=== PATIENT | male | born 1985 | race Caucasian/White ===

== ENCOUNTER 2022-01-29 19:39 | Emergency (ER) | payer SELFPAY ==
[2022-01-29] MEDS ORDERED: Metoclopramide 10 MG/2 ML SDV IVPUSH ONE (20:03)
[2022-01-29] MEDS ORDERED: Sodium Chloride 0.9% 1,000 ML IV ONE ×2 (20:03→21:52)
[2022-01-29] MEDS ORDERED: Ketorolac 30 MG/ML SDV IVPUSH ONE (20:03)
[2022-01-29] MEDS ORDERED: diphenhydrAMINE 50 MG/ML SDV IVPUSH ONE (20:03)
[2022-01-29 20:22] LABS: CARBON DIOXIDE,CO2 30.7 mmol/L (21.0-32.0); POTASSIUM,K 3.7 mmol/L (3.5-5.1)
[2022-01-29] MEDS ORDERED: Iopamidol 755 MG/ML 500 ML Multipack Bottle IVPUSH ONE (20:52)
[2022-01-29] MEDS ORDERED: Sodium Chloride 0.9% 1,000 ML IV STA (21:51)
[2022-01-29 22:28] VITALS: BP 122/65; PULSE 72
== END 2022-01-29 22:27 | disposition home or self-care (01) ==
LOC: MW.ED 19:39
DX: G43.909 Migraine, unspecified, not intractable, without status migrainosus (principal); I95.9 Hypotension, unspecified; Z88.0 Allergy status to penicillin; Z88.1 Allergy status to other antibiotic agents
CPT/HCPCS: 36415; 70450; 70460; 80053; 83735; 85025; 96361; 96374; 96375; 99284; J1200; J1885; J2765; J7030; Q9967

== ENCOUNTER 2022-02-14 17:04 | Emergency (ER) | payer OTHER | END 2022-02-14 21:29 | disposition left against medical advice (07) | LOC: MW.ED 17:04 | DX: Z53.21 Procedure and treatment not carried out due to patient leaving prior to being seen by health care provider (principal) ==

== ENCOUNTER 2022-10-09 21:47 | Emergency (ER) | payer OTHER ==
[2022-10-09] MEDS ORDERED: Sodium Chloride 0.9% 1,000 ML IV ONE ×2 (22:06→22:07)
[2022-10-09] MEDS ORDERED: Metoclopramide 10 MG/2 ML SDV IVPUSH ONE (22:06)
[2022-10-09] MEDS ORDERED: Ketorolac 30 MG/ML SDV IVPUSH ONE (22:06)
[2022-10-09] MEDS ORDERED: diphenhydrAMINE 50 MG/ML SDV IVPUSH ONE (22:06)
[2022-10-09] MEDS ORDERED: Acetaminophen/Butalbital/Caffeine 325-50-40 MG Tab PO ONE (22:07)
[2022-10-09 22:10] LABS: BASOPHILS PERCENT AUTO 0.5 % (0.0-1.5); EOSINOPHILS ABSOLUTE AUTO 0.3 K/uL (0.0-0.7); EOSINOPHILS PERCENT AUTO 3.5 % (0.0-7.0); HEMATOCRIT 48.3 % (38.0-50.0); HEMOGLOBIN 16.7 g/dL (13.0-17.0); LYMPHOCYTES ABSOLUTE AUTO 1.7 K/uL (0.6-2.4); LYMPHOCYTES PERCENT AUTO 19.8 % (16.0-40.0); MEAN CORPUSCULAR HEMOGLOBIN 31.5 pg (27.0-32.0); MEAN CORPUSCULAR HGB CONC 34.6 g/dL (31.0-37.0); MEAN CORPUSCULAR VOLUME 91.1 fL (80.0-98.0); MONOCYTES ABSOLUTE AUTO 0.9 K/uL (0.0-0.8); MONOCYTES PERCENT AUTO 9.8 % (0.0-15.0); NEUTROPHILS ABSOLUTE AUTO 5.8 K/uL (1.4-5.7); NEUTROPHILS PERCENT AUTO 66.4 % (48.0-80.0); NRBC ABSOLUTE 0 K/uL; PLATELET COUNT,PLT 205 K/uL (150-400); WHITE BLOOD CELL COUNT,WBC 8.78 K/uL (4.0-11.0)
[2022-10-09 22:32] LABS: A/G RATIO 1.1 (0.9-1.6); ALBUMIN 3.6 g/dL (3.4-5.0); BILIRUBIN TOTAL 0.6 mg/dL (0.2-1.0); CALCIUM 8.1 mg/dL (8.5-10.1); CARBON DIOXIDE,CO2 29.2 mmol/L (21.0-32.0); CREATININE 1.2 mg/dL (0.8-1.3); EST CRCL DRUG DOSING (CG) 113.87 mL/min; POTASSIUM,K 4.1 mmol/L (3.5-5.1); PROTEIN TOTAL,TP 6.9 g/dL (6.4-8.2)
[2022-10-09 23:09] VITALS: BP 146/77; PULSE 54
== END 2022-10-09 23:08 | disposition home or self-care (01) ==
LOC: MW.ED 21:47
DX: G43.909 Migraine, unspecified, not intractable, without status migrainosus (principal); Z88.0 Allergy status to penicillin; Z88.1 Allergy status to other antibiotic agents; Z79.899 Other long term (current) drug therapy
CPT/HCPCS: 36415; 80053; 85025; 96374; 96375; 99283; A9270; J1200; J1885; J2765; J7030; 99284

== ENCOUNTER 2023-01-19 21:59 | Emergency (ER) | payer OTHER ==
[2023-01-19] MEDS ORDERED: Metoclopramide 10 MG/2 ML SDV IM ONE (22:06)
[2023-01-19] MEDS ORDERED: Ketorolac 30 MG/ML SDV IM ONE (22:06)
[2023-01-19 23:21] VITALS: BP 147/69; PULSE 71
== END 2023-01-19 23:20 | disposition home or self-care (01) ==
LOC: MW.ED 21:59
DX: G43.909 Migraine, unspecified, not intractable, without status migrainosus (principal); Z88.0 Allergy status to penicillin; Z88.1 Allergy status to other antibiotic agents
CPT/HCPCS: 96372; 99283; J1885; J2765